=== PATIENT | male | born 1930 | race Caucasian/White ===

== ENCOUNTER 2016-07-31 05:27 | Day surgery (SDC) | payer OTHER ==
[2016-07-23 09:56] LABS: HEMATOCRIT 38.9 % (42.0-52.0); HEMOGLOBIN 12.9 g/dL (14.0-18.0); MCH 30.7 PG (27-31); MCHC 33.2 g/dL (33-37); MCV 92.6 FL (81-99); MPV 10.5 FL (7.4-10.4); RBC 4.2 XMIL (4.7-6.1)
[2016-07-23 10:23] LABS: AGAP 13; BUN 24 mg/dL (8-22); CALCIUM 9.3 mg/dL (8.8-10.2); CHLORIDE 101 mmol/L (98-107); COSMO 285; POTASSIUM 4.2 mmol/L (3.5-5.1); SODIUM 141 mmol/L (136-145); TCO2 27 mmol/L (25-35)
[2016-07-31] MEDS ORDERED: LR 1,000 ML ONE (05:35)
[2016-07-31] MEDS ORDERED: KEFZOL 1 GM/D5W 50 ML ONE (05:35)
[2016-07-31] MEDS ORDERED: NEOSPORIN G.U. IRRIGANT ONE (06:11)
[2016-07-31] MEDS ORDERED: DIPRIVAN 1% ONE (07:53)
--- NOTE | 2016-07-31 08:21 | OPERATIVE NOTE ---
PROCEDURE DATE: 07/31/2016 SURGEON: Frank Virk MD. 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 PROCEDURE PERFORMED: Cystoscopic examination, left retrograde ureteral pyelogram, attempted right retrograde ureteral pyelogram, change of suprapubic tube. ANESTHESIA: General via laryngeal mask. FINDINGS: Cystoscopic examination: Urethra-greater than 21-Danish without stricture. Prostate- membranous urethral stricture. After this was dilated, the channel was wide open to a bladder neck contracture. After this was dilated with the cystoscope, the channel was wide open. There were multiple nodules across the trigone going up on the right side with a tumor mass on the right side. There were trabeculations but no distinct papillary lesions. There was some bullous edema consistent with the indwelling suprapubic tube. The tube appeared to be in good position. Left retrograde ureteral pyelogram normal without filling defects. The right ureteral orifice could not be found. Rectal examination reveals a prostate probably 15-20 g, flat, firm, consistent with previous radiation therapy. 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 He has had 1 round of chemotherapy. He had intermittent hematuria. DESCRIPTION OF PROCEDURE: After informed consent was obtained from the patient and family, and him receiving IV antibiotics, he was taken to the main OR cystoscopy room and placed in the supine position. General anesthesia via laryngeal mask was achieved. He was then placed in a low lithotomy position, prepped and draped in the usual sterile fashion for cystoscopic examination. A 21-Danish sheath cystoscope was passed through the patient's urethra, prostate, and into the bladder with findings as noted above. The cystoscope was used to dilate the membranous urethral stricture as well as the bladder neck contracture. An 8-Danish cone-tipped catheter was placed but the ureteral orifice could not be visualized on the right. On the left side, the cone-tipped catheter would not engage the UO. The 8-Danish cone-tipped catheter was removed. A 5-Danish open- ended ureteral catheter was placed. A 0.035 zip wire was passed through the ureteral catheter and into the left ureteral orifice. The ureteral catheter was advanced over the wire and up into the ureter. The wire was removed. Contrast was injected. There did not appear to be any filling defects. There were some bubbles that moved up and down the ureter but no solid filling defects were visualized. The open-ended ureteral catheter was removed and the right ureteral orifice was searched for, and multiple places that appeared to be the ureteral orifice were attempted to be cannulated without success. This was tried for over 30 minutes. The bladder was distended as much is it could be. The old suprapubic tube was removed and a new 16-Danish Owusu catheter was passed through the suprapubic tube tract and into the bladder under direct vision. Then 10 mL of sterile water were placed in the Owusu's balloon. The Owusu was placed to gravity drain. Rectal examination was performed. Estimated blood loss 2 mL. He was taken to the recovery room in good condition.
[2016-07-31] MEDS ORDERED: ZOFRAN ONE (08:48)
[2016-07-31] MEDS ORDERED: SODIUM CHLORIDE 0.9% 10 ML ONE (08:48)
[2016-07-31] MEDS ORDERED: XYLOCAINE-MPF 2% ONE (08:49)
[2016-07-31] MEDS ORDERED: DECADRON ONE (08:49)
[2016-07-31] MEDS ORDERED: EPHEDRINE ONE (08:49)
--- NOTE | 2016-07-31 09:12 | Diag Imaging Result Document ---
PROCEDURE NAME: RETROGRADES 2 OR 3 FILMS - 07/31/2016 UNILATERAL LEFT-SIDED URETEROGRAM: COMPARISON: 01/25/2016. FINDINGS: The exam was performed by the patient's urologist. The ureter and renal collecting system are normal on the left. Total fluoroscopy time was 49 seconds. Twenty-three images were obtained. IMPRESSION: Negative exam.
[2016-07-31 09:25] VITALS: BP 156/82
== END 2016-07-31 09:00 | disposition home or self-care (01) ==
LOC: OPS 05:27
PROVIDERS: ATTEND Urology
DX: C67.9 Malignant neoplasm of bladder, unspecified (principal); C61 Malignant neoplasm of prostate; N52.9 Male erectile dysfunction, unspecified; Z87.442 Personal history of urinary calculi; F17.210 Nicotine dependence, cigarettes, uncomplicated; N40.1 Benign prostatic hyperplasia with lower urinary tract symptoms; N13.8 Other obstructive and reflux uropathy; R33.8 Other retention of urine; J86.9 Pyothorax without fistula; Z92.3 Personal history of irradiation; Z92.21 Personal history of antineoplastic chemotherapy; Z93.59 Other cystostomy status; N32.89 Other specified disorders of bladder; Z79.899 Other long term (current) drug therapy
CPT/HCPCS: 74420; 80048; 85027; J0690; J1100; J2405; J7120; Q9966